=== PATIENT | female | born 1980 | race Caucasian/White ===

== ENCOUNTER → 2020-02-24 | Outpatient (CLI) | payer OTHER ==
--- NOTE | 2020-02-25 09:00 | RAD ---
EXAMINATION: MRI RIGHT HIP WITHOUT IV CONTRAST CLINICAL HISTORY: RIGHT FEMORAL ACETABULAR IMPINGEMENT, OSTEOARTHRITIS OF RIGHT HIP TECHNIQUE: Multiplanar multisequential images obtained through the hip without intravenous contrast. COMPARISON: Right hip radiographs 12/13/2019 FINDINGS: Right Hip: Large area of full-thickness chondral loss in the acetabulum and moderate to large area of full-thickness chondral loss in the femoral head with subchondral marrow reactive/cystic changes. Collar osteophyte formation. No definite avascular necrosis. No acute fracture. No discrete labral tear. Small joint effusion with synovitis. Tendons: Within normal limits including the iliopsoas, hamstring, gluteal and rectus femoris tendons. Muscles: Within normal limits. Bones/Marrow: No acute fracture or suspicious marrow replacing process. L5-S1 degenerative changes incidentally noted on localizer sequence. Other: IUD in place. Multifocal susceptibility artifact in the soft tissues anterior to the pelvis, likely postsurgical. IMPRESSION: Advanced degenerative changes right hip as described. No definite avascular necrosis. Electronically signed by: Maximo Eric DO (02/25/2020 8:57 AM) [id number]
== END ==
LOC: MRI 14:17
PROVIDERS: ATTEND Physician Assistant
DX: M16.11 Unilateral primary osteoarthritis, right hip (principal); M25.851 Other specified joint disorders, right hip
CPT/HCPCS: 73721

== ENCOUNTER → 2020-09-07 | Outpatient (CLI) | payer OTHER ==
[~2020-09-07] MED LIST: BUPIVACAINE MPF 0.5% 10 ML VIAL. INT ART ONE; IOHEXOL 300 MG/ML 50 ML VIAL. INT ART ONE; LIDOCAINE 1% Multi-Dose 20 ML VIAL. ID ONE; methylPREDNISolone ACETATE 40 MG/ML VIAL. INT ART ONE
--- NOTE | 2020-09-07 15:51 | KCIC ---
Right hip steroid/local anesthetic injection under fluoroscopy 09/07/2020 CLINICAL HISTORY: Right hip pain. Right hip osteoarthritis TECHNIQUE: After the risks and benefits of the procedure were explained to the patient, written infor med consent was obtained. The skin surface of the anterior right hip was prepped and draped in steril e fashion. 1 percent lidocaine was used as a local anesthetic. Under fluoroscopic guidance a 22-gauge spinal needle was advanced into the anterior aspect of the right hip joint. Intra-articular position of the needle was confirmed with 2 cc of Omnipaque 300. Following this a solution of 4 cc of bupivac jaret, 4 cc of lidocaine and 80 mg of Depo-Medrol were injected through the needle into the right hip. Following this the needle was removed and hemostasis was achieved at the puncture site. A sterile ba ndage was placed on the skin puncture site. The patient tolerated the procedure well and there were n o immediate complications. The total fluoroscopic time for this study is 17 seconds. 1 fluoroscopic c aptured AP digital radiograph of the right hip was obtained. IMPRESSION: Technically successful fluoroscopically guided steroid/local anesthetic injection of the right hip as discussed above. Electronically signed by: Osmin Loredo MD (09/07/2020 3:49 PM) [id number]
== END | disposition home or self-care (01) ==
LOC: KCIC 10:40
PROVIDERS: ATTEND Physician Assistant
DX: M16.11 Unilateral primary osteoarthritis, right hip (principal); Z79.899 Other long term (current) drug therapy
CPT/HCPCS: 27093; 77002; J1030; J3490; Q9967